=== PATIENT | female | born 1950 | race Caucasian/White ===

== ENCOUNTER 2021-12-15 12:48 | Outpatient (REF) | payer MEDICARE, SELFPAY ==
--- NOTE | ~2021-12-15 | XR_ITS ---
EXAMINATION: XR BILATERAL HIPS WITH AP PELVIS CLINICAL INFORMATION: M53.3 - Sacrococcygeal disorders, not elsewhere classified. COMPARISON: None TECHNIQUE: AP view of the pelvis and single views of each hip were obtained. FINDINGS: No fracture, dislocation, destructive process. The SI joints and pubis show no diastases or subchondral sclerosis or erosive change. There is benign whiskering from the lateral aspect of both iliac wings and mild spurring from both greater trochanters. The bilateral internal rotation view suggests mild axial narrowing of both hips. No erosive change or subchondral sclerosis. No superior hip joint narrowing. XR/XR hip BI w PEL1V IMPRESSION: -Mild bilateral axial narrowing hips. No erosive changes. -Bilateral benign spurring greater trochanters and lateral iliac wings.
--- NOTE | ~2021-12-15 | XR_ITS ---
EXAMINATION: XR LUMBOSACRAL SPINE WITH OBLIQUES CLINICAL INFORMATION: M47.816 - Spondylosis without myelopathy or radiculopathy, lumbar region COMPARISON: None TECHNIQUE: Lumbar spine is imaged in 8 views including lateral flexion and lateral extension views. FINDINGS: There is normal lumbar segmentation with 5 nonrib-bearing lumbar vertebrae of normal height and normal lumbar lordosis. There is a gentle levocurvature lumbar spine. There is no vertebral compression or destructive process. There are degenerative disc changes lower thoracic and lumbar spine with disc narrowing and mild endplate sclerosis at T11-T12, T12-L1, L1-L2, and mild disc narrowing at L3-L4 and L4-L5. There is facet degeneration L4-S1. A grade 1 spondylolisthesis is present at L4-L5 at flexion and slightly decreased at neutral position at extension. Oblique view show no spondylolysis. The SI joints and visualized sacrum are unremarkable. XR/XR lumbar spine 6V w bending IMPRESSION: -Mild levocurvature. No vertebral compression or destructive process. -Multilevel degenerative disc changes. Facet degeneration lower lumbar spine. -Grade 1 spondylolisthesis at flexion L4-L5, slightly decreased at neutral position and at extension. No spondylolysis.
== END 2021-12-15 12:49 | disposition home or self-care (01) ==
LOC: HO.XRAY 12:48
PROVIDERS: Visit Provider Nurse Practitioner Family
DX: M47.816 Spondylosis without myelopathy or radiculopathy, lumbar region (principal); M62.830 Muscle spasm of back; M25.551 Pain in right hip; M25.552 Pain in left hip; M53.3 Sacrococcygeal disorders, not elsewhere classified
CPT/HCPCS: 72114; 73521

== ENCOUNTER → 2021-12-27 15:41 | Outpatient (BNVA) | payer MEDICARE, SELFPAY | PROVIDERS: PCP Student in an Organized Health Care Education/Training Program; Visit Provider Nurse Practitioner Family | DX: M53.3 Sacrococcygeal disorders, not elsewhere classified (principal); M25.551 Pain in right hip; M25.552 Pain in left hip; M47.816 Spondylosis without myelopathy or radiculopathy, lumbar region; M62.830 Muscle spasm of back; M46.1 Sacroiliitis, not elsewhere classified; M70.61 Trochanteric bursitis, right hip; M70.62 Trochanteric bursitis, left hip; Z79.1 Long term (current) use of non-steroidal anti-inflammatories (NSAID) | CPT/HCPCS: Q3014 ==

== ENCOUNTER 2022-02-06 05:59 | Outpatient (REF) | payer MEDICARE, SELFPAY | END 2022-02-06 06:00 | disposition home or self-care (01) | LOC: CF 05:59 | PROVIDERS: Visit Provider Anesthesiology | DX: M70.61 Trochanteric bursitis, right hip (principal) | CPT/HCPCS: J2795; J3300 ==

== ENCOUNTER 2022-11-27 09:17 | Outpatient (AMB) | payer MEDICARE, SELFPAY ==
--- NOTE | 2022-11-27 09:16 | MHC.OFFVIS ---
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 She was last seen in our office last December,. Continues to endorse low back pain with bilateral lateral hip and SIJ pain. She avoids sleeping on left side to do localized tenderness in left GTB area. Declined interventional treatments at this time. Reports methocarbamol and gabapentin has been well tolerated and provide her adequate symptom relief. Denies any recent cough, cold, infection, fever or other significant changes in medical history since last office visit. Patient denies any bladder or bowel incontinence or saddle anesthesia. PRIOR: Enma presents today via telehealth encounter to discuss lumbar spine and bilateral hip x-rays. Patient reports she just returned from [place] and has increased pain in her hips and lower back from riding long distances and moving boxes as she prepares her parent's house for sale. She denies abdominal or groin pain. Her lumbar spine x-ray showed multilevel degenerative disc changes with facet degeneration in the lower lumbar spine. Mild levocurvature. No vertebral compression or destructive process. Grade 1 spondylolisthesis at flexion L4-L5, slightly decreased at neutral position and at extension. No spondylolysis. Bilateral hip with pelvic view imaging showed mild bilateral axial narrowing hips without erosive changes. Bilateral benign spurring greater trochanters and lateral iliac wings. Patient states she cannot sleep on her hips, with the left side being worse than right as well as ongoing pain in the projection of her bilateral sacroiliac joints. Patient reports meloxicam has been helpful but she has run out of medication. She has been using a heat pad at night for her back and hips but has not tried ice therapy for her greater trochanteric bursa tenderness. Muscle relaxants and gabapentin have been partially effective. Patient is interested in receiving bilateral GTB steroid injections. We also discussed therapeutic SIJ injections, lumbar MBBs, neuromodulation and ablation procedures. PRIOR: Patient presents today via telehealth encounter to follow up for medication review. Patient reports restarting gabapentin was helpful in partial relief of her lower back pain and radicular symptoms. Patient states she commutes between [place] and [place] constantly and this has been exacerbating her back pain and has symptoms of bilateral hip pain. She is aware of SIJ related pain but feels her hips might be new source of her pain generators. She has been alternating metaxalone and tizanidine and reports this has been effective. Patient returns home on 12/10/21. She requests refills for [facility] with 90 days supply. Upon her return, we will obtain lumbar and bilateral hips imaging to assess degree of degenerative changes. Medical records with imaging from 2018 has not been received from patient's PCP office as of yet. Patient denies any fever, abdominal or groin pain, weakness, weight loss, bowel/bladder dysfunction or saddle anesthesia. PRIOR: Patient is a very pleasant 70 years old female who presents today with worsening chronic lower back pain with radiation to her upper buttocks and laterally down both hips with numbness and tingling in her upper legs anteriorly. Pain describes pain as dull, sore, hurting, aching, heavy, tingling, stinging, spreading, radiating, and piercing. Her pain is worsened with movements, driving, prolonged sitting, or sleeping positions. Patient reports her worst pain is in the evening with highest intensity 6-8/10 and least severe in the late morning with average pain 4-5/10. She attributes her pain due to fall in 2018 when she fell and landed on her left side. Patient denies any recent trauma, injury or fall. Pain has been affecting her daily functioning, mobility, sleep, driving and overall quality of life. Patient reports she had several lumbar and pelvic x-rays done right after the fall and was told there were no fractures or dislocation but was diagnosed with sacroiliitis. These imaging reports are not available for review today. Patient has completed physical therapy with minimal improvement in her symptoms. She also goes for regular deep tissue massage with short term relief. Currently, she daily takes gabapentin 300 mg, meloxicam 15 mg, metaxalone 800 mg and tizanidine 2 mg daily as needed. Denies previous back surgery or injections. Patient denies any fever, abdominal or groin pain, weakness, weight loss, bowel/bladder dysfunction or saddle anesthesia. [facility] Medical History Anxiety and depression Chest pain Diverticulosis Esophageal dysmotility Hypercalcemia Hypercholesterolemia Lyme disease Malignant melanoma Migraine Osteoarthritis Shoulder pain Vitamin D deficiency Social History Alcohol intake: current Alcohol intake frequency: 0-2 drinks per day Alcohol type: beer, wine and hard liquor Patient Tobacco Use Status: Former Tobacco user Review of Systems Const All systems reviewed & are unremarkable except as noted in HPI and below Physical Exam Vital Signs: Last Vital Signs Pulse 53 11/27/22 09:22 BP 142/67 H 11/27/22 09:22 Pulse Ox 99 11/27/22 09:22 Oxygen Delivery Method Room Air 11/27/22 09:22 BMI result Body Mass Index 25.9 General: Appears afebrile. Alert and oriented. Mood and affect appropriate. Follows and participates in conversation appropriately. Respiratory effort is unlabored. No cough. Able to transition from sit to stand unassisted. Ambulates with bilaterally normal heel strike and toe off. Back/Spine/Pelvis Cervical Spine: cervical ROM normal and No Cervical spine tenderness Thoracic/Lumbar Spine: thoracic and lumbar spine normal to inspection, Lasegue's sign negative, straight leg raise negative bilaterally, pain with thoraco-lumbar ROM, paraspinal muscle tenderness, No thoracic spinal tenderness and lumbar spinal tenderness at L5 Pelvis: buttock tenderness Sacroiliac joints: bilaterally (+Pelvic compression, +Giancarlo's) tender to palpation Assessment & Plan Assessment & Plan (1) Greater trochanteric bursitis of both hips: Code(s): M70.61 - Trochanteric bursitis, right hip; M70.62 - Trochanteric bursitis, left hip (2) Lumbar spondylosis: Code(s): M47.816 - Spondylosis without myelopathy or radiculopathy, lumbar region (3) Sacroiliitis: Code(s): M46.1 - Sacroiliitis, not elsewhere classified (4) Sacroiliac joint dysfunction: Code(s): M53.3 - Sacrococcygeal disorders, not elsewhere classified (5) Bilateral hip pain: Code(s): M25.551 - Pain in right hip; M25.552 - Pain in left hip (6) Muscle spasm of back: Code(s): M62.830 - Muscle spasm of back Plan Refills with 90 days provided for gabapentin and methocarbamol per patient's request and sent to [facility]. Script also provided for diclofenac gel for lateral hip pain and lower back. Patient will notify our office if she is interested for interventional treatments for her pain generatofrs. All questions and concerns have been answered and patient agreed with the plan. Follow up as needed. Medications: New diclofenac sodium 1% (Arthritis Pain (diclofenac)) 4 grams topical QID 100 grams 1RF pain M46.1 - Sacroiliitis, not elsewhere classified, M47.816 - Spondylosis without myelopathy or radiculopathy, lumbar region, M70.61 - Trochanteric bursitis, right hip, M70.62 - Trochanteric bursitis, left hip Refilled methocarbamol 750 mg PO Q8H 90 days PRN 270 tabs 6RF muscle spasm M46.1 - Sacroiliitis, not elsewhere classified, M47.816 - Spondylosis without myelopathy or radiculopathy, lumbar region, M62.830 - Muscle spasm of back gabapentin 300 mg PO BID 90 days 180 caps 6RF pain M47.816 - Spondylosis without myelopathy or radiculopathy, lumbar region, M53.3 - Sacrococcygeal disorders, not elsewhere classified, M62.830 - Muscle spasm of back Coding Level of Care Code Est Pt Level 4 (03223) Diagnoses Greater trochanteric bursitis of both hips M70.61; M70.62 Lumbar spondylosis M47.816 Sacroiliitis M46.1 Sacroiliac joint dysfunction M53.3 Bilateral hip pain M25.551; M25.552 Muscle spasm of back M62.830
[2022-11-27 09:22] VITALS: BP 142/67; PULSE 53; O2SAT 99; BMI 25.9
== END 2022-11-27 09:34 | disposition home or self-care (01) ==
PROVIDERS: PCP Student in an Organized Health Care Education/Training Program; Visit Provider Nurse Practitioner Family
DX: M70.61 Trochanteric bursitis, right hip (principal); M70.62 Trochanteric bursitis, left hip; M47.816 Spondylosis without myelopathy or radiculopathy, lumbar region; M46.1 Sacroiliitis, not elsewhere classified; M53.3 Sacrococcygeal disorders, not elsewhere classified; M25.551 Pain in right hip; M25.552 Pain in left hip; M62.830 Muscle spasm of back
CPT/HCPCS: 99214

== ENCOUNTER → 2022-11-27 09:17 | Outpatient (BNVA) | payer MEDICARE, SELFPAY | PROVIDERS: PCP Student in an Organized Health Care Education/Training Program; Visit Provider Nurse Practitioner Family | DX: M70.61 Trochanteric bursitis, right hip (principal); M70.62 Trochanteric bursitis, left hip; M25.551 Pain in right hip; M25.552 Pain in left hip; M53.3 Sacrococcygeal disorders, not elsewhere classified; M46.1 Sacroiliitis, not elsewhere classified; M47.816 Spondylosis without myelopathy or radiculopathy, lumbar region; M62.830 Muscle spasm of back | CPT/HCPCS: 99212 ==